=== PATIENT | female | born 1985 | race Caucasian/White ===

== ENCOUNTER 2017-03-23 17:59 | Emergency (ER) | payer OTHER ==
--- NOTE | 2017-03-23 19:54 | OBADHP ---
Datetime: 03/23/2017 19:47 Admit Comment, IP Provider: Pt was seen today in office at 1:30 PM and SROM of clear fluid was confi rmed. Sterile speculum exam at that time revealed 50/-2 a new exam was not done on admission to dec rease the risk of infection at this time as patient has had SROM x 18 hours. FHR Category 1, informe d consent. will proceed with IOL secondary to PROM. Pt, FOB, scribing machine operator and pt's mother in room. plan expl ained to patient. Pelvic Type - PN: Adequate Extremities - PN: Normal Abdomen - PN: Normal Back - PN: Normal Lungs - PN: Normal Heart - PN: Normal Neurologic - PN: Normal HEENT - PN: Normal General - PN: Normal FHR - Baseline A Provider: 140 Amniotic Fluid Color, Provider: Clear Membranes, Provider: Ruptured Contraction Comments Provider: Irregular Pool Provider: Positive Nitrazine Provider: Positive Vital Signs Provider: Reviewed IP Chief Complaint: Uterine contractions; Suspected ruptured membranes NICHD Variability Prov Fetus A: Moderate 6-25bpm NICHD Accel Fetus A IP Provider: [id number] FHR Category Provider Fetus A: Category I NICHD Decel Fetus A IP Provider: None Dilatation, Provider: 1 Effacement, Provider: 50 Station, Provider: -2 DTRs - PN: Normal IP Adm Impression: Term, intrauterine ; Ruptured Membranes IP Admit Plan: Admit to unit; Initiate labor protocol
[2017-03-23 20:05] VITALS: BMI 27.6
--- NOTE | 2017-03-23 21:34 | OBDCSUM ---
Datetime: 03/23/2017 21:29 Discharge Instructions, Provider: Specific instructions as noted Discharge Diagnosis, Provider: PROM - Indicate X Hours Discharge Time: 03/16/2017 21:29 Discharge Comment, Provider: Against my recommendation, patient wanted to go home as she was refusin g IOL secondary to PROM. I advsised antibitoics to decrease her risk of infection and patient report s she will come back at 2:30 AM for IV abx administration.
[2017-03-24] MEDS ORDERED: Prenatal Multivit/Folic Acid/Iron Tab PO SCH (09:00)
== END 2017-03-23 21:24 | disposition home or self-care (01) ==
LOC: H.EROB2 17:59 → H.L&D 20:06 → UNDOADMIN 20:06 → UNDODISIN 21:24 → H.EROB2 21:24
DX: O42.90 Premature rupture of membranes, unspecified as to length of time between rupture and onset of labor, unspecified weeks of gestation (principal); Z36 Encounter for antenatal screening of mother; Z3A.00 Weeks of gestation of pregnancy not specified

== ENCOUNTER 2017-03-24 05:54 | Inpatient (IN) | payer OTHER ==
[2017-03-23 20:05] VITALS: BMI 27.6
[2017-03-24] MEDS ORDERED: Lactated Ringer's 1,000 ML IV ONE (06:00)
[2017-03-24] MEDS: AMPicillin 1 GM in Sodium Chloride 0.9% 100 ML IVPB SCH ×5 (06:15→21:10)
[2017-03-24 06:24] LABS: BASO % 0.3 % (0.0-2.0); EOS # 0.1 K/uL (0.0-0.7); EOS % 1.2 % (0.0-4.0); HEMATOCRIT 32.7 % (34.0-47.0); LYMPH # 2.9 K/uL (1.0-4.3); LYMPH % 30.7 % (20.0-40.0); MEAN CELL VOLUME 94.9 fl (81.0-99.0); MEAN CORPUSCULAR HEMOGLOBIN 31.6 pg (27.0-31.0); MEAN CORPUSCULAR HGB CONC 33.3 g/dL (33.0-37.0); MEAN PLATELET VOLUME 8.5 fl (7.2-11.7); MONO # 0.9 K/uL (0.0-0.8); MONO % 9.2 % (0.0-10.0); NEUT # 5.6 K/uL (1.8-7.0); NEUT % 58.6 % (50.0-75.0); RED CELL DISTRIBUTION WIDTH 15.3 % (11.5-14.5); WHITE BLOOD COUNT 9.5 K/uL (4.8-10.8)
[2017-03-24 06:39] VITALS: BP 96/64; PULSE 86; RESP 17; TEMP 98.8; O2SAT 100
--- NOTE | 2017-03-24 18:16 | OBPN ---
Datetime: 03/24/2017 18:10 IP Progress Impression: Rupture of membranes; Premature rupture of membranes IP Informed Consent Obtain: Vaginal Delivery IP Progress Plan: Continue present management Contraction Comments Provider: irregular contractions FHR - Baseline A Provider: 145 IP Progress Note Comment: Pt continues to be non-compliant with IOL and refusing IOL at this time. R isks of infection, sepsis, infection reviewed with pateint and patinet continues to refuse v aginal exam and refuse IOL. Now with irregular contractions starting, pt again refusing IOL. Patient temp is 98.9 up from 98.4 and I again cautioned patient that she is very remote from delivery and has a high likelyhood of developing chorioamniotis. Vital Signs Provider: Reviewed NICHD Accel Fetus A IP Provider: [id number] FHR Category Provider Fetus A: Category I NICHD Variability Prov Fetus A: Moderate 6-25bpm NICHD Decel Fetus A IP Provider: None Datetime: 03/23/2017 19:47 Pool Provider: Positive Nitrazine Provider: Positive Membranes, Provider: Ruptured Amniotic Fluid Color, Provider: Clear Dilatation, Provider: 1 Effacement, Provider: 50 Station, Provider: -2
[2017-03-24] MEDS ORDERED: Oxytocin 30 units/LR 500ML 30 U/500 ML BAG IV ONE ×2 (19:12→20:10)
--- NOTE | 2017-03-24 21:28 | OBPN ---
Datetime: 03/24/2017 18:45 IP Progress Impression: Arrest of dilatation/descent IP Progress Plan: Augmentation Contraction Comments Provider: regular FHR - Baseline A Provider: 140 IP Progress Note Comment: Patient is now agreeable to pitocin augmentation of labor. Irregulat contr actions. FHR cateogry 1. Will continue to monitor for s/sx of chorioamniotis. Vital Signs Provider: Reviewed NICHD Accel Fetus A IP Provider: [id number] FHR Category Provider Fetus A: Category I NICHD Variability Prov Fetus A: Moderate 6-25bpm Dilatation, Provider: 1 Effacement, Provider: 80 Station, Provider: -1 NICHD Decel Fetus A IP Provider: None
[2017-03-25] MEDS: AMPicillin 1 GM in Sodium Chloride 0.9% 100 ML IVPB SCH ×4 (01:15→13:30)
--- NOTE | 2017-03-25 06:08 | OBPN ---
Datetime: 03/25/2017 06:03 IP Progress Impression: Reassuring heart rate IP Progress Note Comment: Pt is hesitatnt to my plan of care to titrate pitocin a regular labor venice manuel and actve is established. She has not made any change in her labor pattern for 12 hours. But now is agreeable to an increase in pitocn. Because of her prolonged SROM now 50 hours. I have not done a vagnal exam to give this patient the lowest chance of chororamnonitis. Plan to perform vagnal exam upon an increase in pitocn again or any signs of distress. Vital Signs Provider: Reviewed NICHD Accel Fetus A IP Provider: [id number] FHR Category Provider Fetus A: Category I NICHD Variability Prov Fetus A: Moderate 6-25bpm NICHD Decel Fetus A IP Provider: None
--- NOTE | 2017-03-25 08:31 | OBPN ---
Datetime: 03/25/2017 08:28 IP Progress Impression: Normal progression of labor; Reassuring heart rate IP Progress Plan: Continue present management; Augmentation Contraction Comments Provider: regular contractions every 3-4 min IP Progress Note Comment: uterine contractons are now strong to palpation Vital Signs Provider: Reviewed Dilatation, Provider: 5 Effacement, Provider: 90 Station, Provider: -1 Datetime: 03/25/2017 06:03 IP Informed Consent Obtain: Vaginal Delivery
--- NOTE | 2017-03-25 09:06 | OBPPN ---
Datetime: 03/25/2017 09:03 PP Pain Prov: Within normal limits PP Nausea Prov: Denies PP Flatus Prov: Yes PP BM Prov: Yes PP Breasts Prov: Normal PP Heart Prov: Normal PP Lungs Prov: Normal PP Abdomen/Uterus Prov: Normal PP Extremities Prov: Normal PP Impression Prov: Normal progression PP Plan Prov: Continue present management PP Progress Note Prov: S/P . Doing well. Plan to discharge home in the AM and follow up in the o ffice in 6 wks. Patient seen last night at 9 pm by Isabel Martin. Arthur GARZA for pain Vital Signs Provider PP: Reviewed Vital Signs Provider Details PP: Anemic - asymptomatic
[2017-03-25] MEDS ORDERED: Fentanyl/Bupivacaine HCl 250 ML EPI ONE (12:27)
[2017-03-25] MEDS ORDERED: Bupivacaine HCl 0.25% PF (10 ml) Inj ONE (12:27)
[2017-03-25] MEDS ORDERED: Lidocaine 1% Inj (20ml) ONE (16:14)
--- NOTE | 2017-03-25 17:12 | OBDS ---
DELIVERY PERSONNEL Nurse Rolls Mill Operator Certified: Isabel Martin CNM Delivery Doctor: Isabel Martin CNM Cv Tech: Tejal Huerta RN Anesthesiologist: Larry Fuller MD MATERNAL INFORMATION Delivery Anesthesia: Epidural Medications in Delivery: pitocin 30 units rapd rate IVF, methergine 0.2 mg IM 1650 Maternal Complications: Premature Rupture of Membranes LABOR SUMMARY EDC: 04/05/2017 00:00 No. Babies in Womb: 1 Attempted: No LABOR INFORMATION Reason for Induction: Premature Rupture of Membranes Onset of Labor: 03/24/2017 16:30 Complete Dilatation: 03/25/2017 14:26 Cervical Ripening Agents: Cytotec @ (Annotations: 50 mcg po as per CNM order ) Oxytocin: Augmentation Group B Beta Strep: Negative Antibiotics # of Doses: 9 Antibiotics Time of Last Dose: 929 MEMBRANES Membranes Rupture Method: Spontaneous Rupture of Membranes: 03/23/2017 04:30 Length of Rupture (hrs): 60.18 Amniotic Fluid Color: Clear Amniotic Fluid Amount: Moderate Amniotic Fluid Odor: Normal STAGES OF LABOR Stage 1 hrs: 21 Stage 1 min: 56 Stage 2 hrs: 2 Stage 2 min: 15 Stage 3 hrs: -167 Stage 3 min: -55 Total Time in Labor hrs: -143 Total Time in Labor min: -44 VAGINAL DELIVERY Episiotomy: None Laceration Extension: First Degree Laceration Type: Vaginal Laceration Repair: Yes Sponge Count Correct: Yes Sharps Count Correct: Yes BABY A INFORMATION Delivery Date/Time: 03/25/2017 16:41 Born in Route : No : N/A Forceps: N/A SHOULDER DYSTOCIA BABY A Infant Delivery Date/Time: 03/25/2017 16:41 PRESENTATION/POSITION BABY A Presentation: Cephalic Cephalic Presentation: Vertex Breech Presentation: N/A PLACENTA INFORMATION BABY A Placenta Delivery Time : 03/18/2017 16:46 Placenta Method of Delivery: Spontaneous Placenta Status: Delivered INFORMATION BABY A Gestational Age at Delivery: 38.2 Gestational Status: Term Outcome : Liveborn Infant Condition : Stable Sex: Female CORD INFORMATION BABY A No. Cord Vessels: 3 Nuchal Cord : Around Neck x1, Loose Cord Blood Taken: Yes Infant Suction: Mouth
[2017-03-25] MEDS ORDERED: Benzocaine/Menthol SPRAY TOP PRN (18:05)
[2017-03-25] MEDS ORDERED: Oxycodone/Acetaminophen 5/325 mg Tab PO PRN ×2 (18:05)
[2017-03-26 08:37] LABS: HEMATOCRIT 30.7 % (34.0-47.0); MEAN CORPUSCULAR HGB CONC 32.6 g/dL (33.0-37.0); RED CELL DISTRIBUTION WIDTH 15.7 % (11.5-14.5); WHITE BLOOD COUNT 13.1 K/uL (4.8-10.8)
[2017-03-26] MEDS ORDERED: Multivitamin With Minerals Tab PO SCH (09:00)
[2017-03-26] MEDS: Prenatal Multivit/Folic Acid/Iron Tab PO SCH (09:32)
[2017-03-27] MEDS: Prenatal Multivit/Folic Acid/Iron Tab PO SCH (09:35)
--- NOTE | 2017-03-27 12:18 | OBDCSUM ---
Datetime: 03/27/2017 11:36 Discharged to, Provider: Home Follow up at, Provider: [facility] or Disch Instr Activity: Normal activity; May be up to bathroom; May be up for meals Disch Instr Diet: Regular Discharge Instructions, Provider: Routine instructions given Discharge Diagnosis, Provider: Term Delivered; PROM - Indicate X Hours Discharge Time: 03/27/2017 12:00 Follow up in weeks, Provider: 6 Disch Referrals: None Disch Activity Restrictions: No lifting; No sexual activity; Nothing in vagina - [place], tampon s, douche Datetime: 03/23/2017 21:29 Disch Instr Activity: Normal activity; May be up to bathroom; May be up for meals; May Shower Disch Activity Restrictions: No lifting; No sexual activity; Nothing in vagina - [place], tampon s, douche
== END 2017-03-27 14:20 | disposition home or self-care (01) | DRG 775 ==
LOC: H.L&D 05:54 → H.OB/GYN 03-25 19:15
PROVIDERS: ADMIT Obstetrics & Gynecology; ATTEND Obstetrics & Gynecology
PROC: 4A1HXCZ Monitoring of Products of Conception, Cardiac Rate, External Approach (ICD-10-PCS; 2017-03-24)
PROC: 10E0XZZ Delivery of Products of Conception, External Approach (ICD-10-PCS; principal; 2017-03-25)
PROC: 0HQ9XZZ Repair Perineum Skin, External Approach (ICD-10-PCS; 2017-03-25)
DX: O42.02 Full-term premature rupture of membranes, onset of labor within 24 hours of rupture (principal); O62.0 Primary inadequate contractions; O70.0 First degree perineal laceration during delivery; D64.9 Anemia, unspecified; O99.02 Anemia complicating childbirth; O69.81X0 Labor and delivery complicated by cord around neck, without compression, not applicable or unspecified; Z3A.38 38 weeks gestation of pregnancy; Z37.0 Single live birth